=== PATIENT | female | born 1985 | race Caucasian/White ===

== ENCOUNTER 2017-11-09 15:49 | Emergency (ER) | END 2017-11-09 19:45 | disposition home or self-care (01) ==

== ENCOUNTER 2018-04-11 15:46 | Emergency (ER) | END 2018-04-11 18:02 | disposition home or self-care (01) ==

== ENCOUNTER 2018-07-25 17:42 | Emergency (ER) | END 2018-07-25 21:43 | disposition home or self-care (01) ==